=== PATIENT | female | born 1995 | race Caucasian/White ===

== ENCOUNTER 2018-10-08 14:57 | Emergency (ER) | payer MEDICAID, SELFPAY ==
[2018-10-08 14:58] VITALS: BP 118/78; PULSE 124; RESP 22; TEMP 36.6; O2SAT 100; BMI 36.5
--- NOTE | 2018-10-08 15:12 | ED.DCSUM_ITS ---
- ER Visit Summary Date of Service: 10/08/18 Chief Complaint: Abscess History of Present Illness: The patient is a 22 F with history of IV drug abuse presents to the emergency department with abscess on her left breast. Patient states the last time she injected in this area was in July. She states th at she had a continued red area since that time. She states is not gotten worse. She states it also has not improved. She does have history of prior abscess. She states that she was hesitant to seek care because of her history of drug abuse. She denies any fevers or chills. She has no history of HIV. She has not tried any other therapies. Physical Examination: Vital signs reviewed General: Well-nourished, well-developed Head: Normocephalic, atraumatic Eyes: Pupils equal and reactive, extraocular muscles intact Neck, supple, no lymphadenopathy Heart: Regular rate and rhythm Respiratory: No distress, clear bilaterally Abdomen: Soft, nontender, nondistended, no peritoneal signs Back: Nontender Extremities: Nontender, no edema, no cords Skin: Normal color, patient has a 6 cm ovoid area of erythema at the 11 o'clock position on the left breast. There is no central fluctuance. There is no streaking or cellulitis. Neuro: Alert and oriented, no focal or lateralizing deficits Test Results: [] Emergency Department Course and Treatment: The patient has erythema of the left breast. I do feel that this might be even a small area of necrotic tissue from her injection. It has not worsened within the past 2 months. I am hesitant to try and incise this area as there is no fluctuance. I am going to start the patient on oral antibiotics. I did counseling services manager her that she needs to follow-up with general surgery for reevaluation. I also counseled her that if this is not improving within the next 24-48 hours she should return immediately to the emergency department. She has had no systemic symptoms. I have no suspicion for bacteremia or other dangerous process. The patient will be discharged home. Treatment Plan: [] Disposition: To Impression: Left breast cellulitis This note was generated with [employer] dictation software. It may contain incorrect words, spelling, and punctuation that were not noted in review of the chart prior to signing ED Disposition - Plan for ED Patient: Chief Complaint: Abscess Instructions: ED Infec Skin Cellulitis Prescriptions: Smz/Tmp Ds [Bactrim Ds] 1 tab PO BID #20 tab Referrals: Lydia Fu MD [STAFF PHYSICIAN] - Víctor Sal MD [STAFF PHYSICIAN] -
[2018-10-08] MEDS: Smz/Tmp Ds Tablet 1 TABLET PO (15:29)
[2018-10-08 15:36] VITALS: PULSE 105; RESP 20; O2SAT 99
== END 2018-10-08 15:39 | disposition home or self-care (01) ==
LOC: ED 15:35
PROVIDERS: Emergency Provider Emergency Medicine
DX: N61.0 Mastitis without abscess (principal); F19.11 Other psychoactive substance abuse, in remission
CPT/HCPCS: 99283

== ENCOUNTER 2018-12-15 05:06 | Observation (INO) | payer MEDICAID, SELFPAY ==
[2018-12-15 05:07] VITALS: BP 134/87; PULSE 110; RESP 18; TEMP 36.8; O2SAT 98; BMI 32.8
--- NOTE | 2018-12-15 05:34 | ED.VISSUMM ---
- ER Visit Summary Date of Service: 12/15/18 Chief Complaint: Right hand pain History of Present Illness: The patient is a 23 F presenting due to right hand pain. The patient has a history of IV meth usage. She states that 2 days ago, she injected into the dorsum of her right hand. She reports that she had an instant feeling of pain. She states that since then she has had some spreading redness in the area and continued pain. She states that this has been refractory to ibuprofen, warm soaks, and ice. She states that she has not had any constitutional symptoms such as fever or chills. She denies any chest pain or shortness of breath. ROS is otherwise negative. Physical Examination: Vitals are notable for a heart rate of 110. Well nourished female no acute distress. Head normocephalic. Moist mucous membranes. Heart tachycardic and regular with no murmurs. Extremities show multiple track deutsch. The dorsum of the right hand has swelling, erythema extending to the wrist, and tenderness to palpation. There is no short arc pain of the wrist. Normal ROM of the wrist and hand. SILT. Normal pulses, Normal cap refill. No fluctuance or subcutaneous emphysema noted. Test Results: Right hand x-ray shows cellulitis with no bony involvement and no foreign bodies, CBC shows leukocytosis of 12, chemistry not significantly remarkable and a normal lactic acid. Emergency Department Course and Treatment: Patient presented secondary to IV drug abuse and infection of the dorsum of the right hand. Patient was tachycardic, so sepsis workup was obtained. She was found to have leukocytosis, she meets sepsis criteria. She was given clindamycin IV. X-ray shows no evidence of foreign body or bony involvement. This is the patient's dominant hand, she has sepsis, and I have significant suspicion that she would have difficulty with adhering to an antibiotic regimen. I believe she requires admission for IV antibiotics. I will discussed this with hospitalist. Disposition: Admission Impression: 1. Right hand cellulitis 2. Sepsis 3. History of IV methamphetamine use This note was generated with [employer] software. It may contain incorrect words, spelling, and punctuation that were not noted in review of the chart prior to signing ED Disposition - Plan for ED Patient: Referrals: Care Physician,No Primary [Primary Care Provider] -
[2018-12-15 05:45] VITALS: BP 109/72; PULSE 92; RESP 28; TEMP 36.8; O2SAT 95
[2018-12-15 05:45] LABS: Absolute Neutrophil Count 7.8 X10^3/uL (2.0-7.7); Basophil# 0.07 X10^3/uL; Basophil% 0.6 % (0-1); Eosinophil# 0.57 X10^3/uL; Eosinophils% 4.5 % (0-5); Hematocrit 39.4 % (37-47); Hemoglobin 12.9 g/dl (12.0-15.0); Lymphocyte % 27.5 % (19-41); Mean Corp Hgb Conc 32.7 g/gl (32-36); Mean Corpuscular Hgb 27.9 pg (27.0-32.0); Mean Corpuscular Volume 85.3 fL (81-99); Mean Platelet Vol. 10.4 fl (6.2-12.0); Monocyte# 0.75 X10^3/uL; Monocyte% 5.9 % (0-10); Neutrophil # 7.78 X10^3/uL (2.7-7.7); Neutrophil % 61.1 % (47-70); Platelet Count 265 K/mm3 (150-450); RBC Distribution Width CV 12.7 % (11.6-14.6); RBC Distribution Width SD 38.9 fl (35.1-43.9); Red Blood Count 4.62 M/mm3 (4.2-5.4); White Blood Count 12.7 K/mm3 (4.4-11.0)
--- NOTE | 2018-12-15 05:45 | RAD_ITS ---
STUDY: X-RAY - RIGHT HAND REASON FOR EXAM: Female, 23 years old. PT STATES SHE ATTEMPTED TO SHOOT UP METH IN RIGHT HAND AND HAD INSTANT PAIN WITH SWELLING AND REDNESS TECHNIQUE: view(s) of the hand. COMPARISON: None. FINDINGS: Normal radiocarpal articulation. Normal distal radioulnar joint. Normal visualized carpal bones. Normal carpal articulations Normal carpometacarpal articulation of the thumb. Normal second through fifth carpometacarpal joints. Normal metacarpi. Normal metacarpophalangeal joint of the thumb. Normal interphalangeal joint of the thumb. Normal proximal and distal phalanges of the thumb. Normal metacarpophalangeal joints of the second through fifth fingers. Normal proximal and distal interphalangeal joints of the second through fifth fingers. Normal phalanges of the second through fifth fingers. There is soft tissue swelling at the dorsal aspect of right hand suggesting edema. RAD/Hand Min 3 Views IMPRESSION: Cellulitis of the dorsal aspect of the right hand. Electronically Signed: Gisella Rodriguez MD at 5:57 EST Tel , Service support ,
[2018-12-15 05:55] LABS: Prothrombin Time (Protime)PT. 13.5 SECONDS (11.7-14.9)
[2018-12-15 05:56] LABS: Partial Thromboplast Time 32.8 Seconds (24.1-36.2)
[2018-12-15 05:59] LABS: POSITIVE COUNT NO; POSITIVE DIFFERENTIAL NO; POSITIVE MORPHOLOGY NO
[2018-12-15 06:05] LABS: Lactic Acid 0.9 mmol/L (0.4-2.0)
[2018-12-15 06:08] LABS: ALB/GLOB Ratio 0.7 RATIO (0.9-2.4); AST(SGOT) 12 U/L (15-37); Alanine Aminotransfer ALT/SGPT 15 U/L (13-56); Albumin, Serum 3.3 g/dL (3.2-5.0); Alkaline Phosphatase 82 U/L (45-117); Anion Gap 9 (5-15); BUN 12 mg/dL (7-18); BUN/Creat Ratio 18.9 RATIO (10-20); Calcium,Total 8.7 mg/dL (8.5-10.1); Chloride 106 mmol/L (98-107); Creatinine, Serum 0.64 mg/dL (0.55-1.02); EST Glomerular Filtration Rate 125 mL/min (>60); Est Glom Filt Rate - Afr Amer 152 mL/min (>60); Estimated Creatinine Clearance 120.07 ml/min; Globulin 4.8 g/dL (2.2-4.2); Glucose 100 mg/dL (74-106); Protein, Total 8.1 g/dL (6.4-8.2); Sodium Level 140 mmol/L (136-145)
[2018-12-15] MEDS: Ketorolac 15 MG/ML Vial IV (06:25)
--- NOTE | 2018-12-15 06:28 | PCM.HP.STD ---
Problem List (1) Sepsis Status: Acute (2) Cellulitis of right hand Status: Acute (3) IV drug abuse Status: Chronic History of Present Illness Date of Admission: 12/15/18 Chief Complaint: Right hand pain, swelling, redness. The patient is a 23 year old F with past medical history as mentioned above presented to the emergency room because of right hand pain, swelling and redness. Her symptoms started 2 days ago with the right hand pain, started almost immediately after she injected IV methamphetamine, pain described as throbbing pain, 6 out of 10 in severity, not radiating, associated with right hand swelling and redness and without aggravating or relieving factors. She denies fever chills. She admitted using IV drugs for a long time and she uses multiple drugs. Upon arrival to ER, patient was afebrile, tachycardic, blood pressure was stable and pulse ox was 98% on room air. Routine blood work was remarkable for leukocytosis, otherwise normal. Lactic acid was normal. X-ray of the left hand revealed soft tissue swelling of the dorsal aspect of the consistent with cellulitis. She is being admitted for acute right hand cellulitis with sepsis. 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 - *Family History Maternal History Items: Diabetes, Hypertension Paternal History Items: No pertinent history Review of Systems Constitutional: Denies: Anorexia, Chills, Fever, Weakness Eyes: Denies: Blurred vision, Double vision, Drainage, Redness HEENT: Denies: Difficulty Hearing, Ear Pain, Eye Pain, Nasal Congestion, Sore Throat Cardiovascular: Denies: Chest Pain, Chest Pressure, Chest Tightness, Heaviness, Light Headedness, Palpitations, Syncope Respiratory: Denies: Cough, Pleuritic Pain, Shortness of Breath, Sputum production, Wheezing Gastrointestinal: Denies: Abdominal Pain, Constipation, Diarrhea, Nausea, Vomiting Genitourinary: Denies: Dysuria, Frequency, Hematuria Musculoskeletal: Reports: Hand Pain. Denies: Arm Pain, Back Pain, Foot Pain, Leg Pain Skin: Denies: Dryness, Rash Neurological: Denies: Balance problems, Double vision, Change in Speech, Confusion, Headaches, Incoordination, Numbness, Tingling Psychiatric: Denies: Anxiety, Depression Endocrine: Denies: Change in Body Habitus, Polydipsia VTE Information - Inpt Only VTE Present on Admission: No VTE Mechan Device Prophylaxis: None VTE Pharm Prophylaxis ordered?: No Patient Problems: Active and Suspected Problems Sepsis (Acute) Cellulitis of right hand (Acute) - Physical Exam General: Alert, Oriented x3, Cooperative, No apparent distress HEENT: Atraumatic, PERRLA, EOMI, Normocephalic Oral: Moist Mucosa, No Gingival or Mucosal Lesions/ Ulcerations Neck: Supple, No JVD, Negative Carotid Bruits, Trachea Midline, Thyroid Normal Size and Texture Lungs: Clear to auscultation, Normal air movement, No rhonchi, No wheeze, No rales Cardiovascular: Regular rate, Regular Rhythm, Normal S1, Normal S2, No murmurs Abdomen: Bowel Sounds Present, Soft, Non Tender, Non-Distended, No Hepato-splenomegaly, Obese Extremities: No clubbing, No cyanosis, No edema, - - Right hand: Swelling on the dorsal aspect with erythema, tender to palpation. Skin: No rashes, No breakdown Lymphatic: No Cervical, Supraclavicular, or Inguinal Adenopathy Neurological: Deep Tendon Reflexes 2+/4 and Symmetrical, Motor Exam 5/5 strength throughout Psych/Mental Status: Normal Affect, Appropriate, Alert and oriented to time, place, person, mood and affect Vital Signs Temp Pulse Resp BP Pulse Ox 98.3 F 92 28 H 109/72 95 12/15/18 05:45 12/15/18 05:45 12/15/18 05:45 12/15/18 05:45 12/15/18 05:45 Oxygen Delivery Method Room Air Weight: 191 lb 2.252 oz Body Mass Index (BMI) 32.8 Laboratory Tests Past 24 Hrs 12/15/18 12/15/18 12/15/18 05:30 05:30 05:30 WBC 12.7 H RBC 4.62 Hgb 12.9 Hct 39.4 MCV 85.3 MCH 27.9 MCHC 32.7 RDW 12.7 RDW Differential 38.9 Plt Count 265 MPV 10.4 Immature Gran % (Auto) 0.400 Neut % (Auto) 61.1 Lymph % (Auto) 27.5 [place] % (Auto) 5.9 Eos % (Auto) 4.5 Baso % (Auto) 0.6 Absolute Neuts (auto) 7.8 H Absolute Lymphs (auto) 3.50 Total Counted Not Reportable PT 13.5 INR 1.0 APTT 32.8 Sodium 140 Potassium 4.0 Chloride 106 Carbon Dioxide 25.0 Anion Gap 9 BUN 12 Creatinine 0.64 Estim Creat Clear Calc 120.07 Est GFR (MDRD) Af Amer 152 Est GFR (MDRD) Non-Af 125 BUN/Creatinine Ratio 18.9 Glucose 100 Lactic Acid Calcium 8.7 Total Bilirubin 0.30 AST 12 L ALT 15 Alkaline Phosphatase 82 Total Protein 8.1 Albumin 3.3 Globulin 4.8 H Albumin/Globulin Ratio 0.7 L 12/15/18 05:30 WBC RBC Hgb Hct MCV MCH MCHC RDW RDW Differential Plt Count MPV Immature Gran % (Auto) Neut % (Auto) Lymph % (Auto) [place] % (Auto) Eos % (Auto) Baso % (Auto) Absolute Neuts (auto) Absolute Lymphs (auto) Total Counted PT INR APTT Sodium Potassium Chloride Carbon Dioxide Anion Gap BUN Creatinine Estim Creat Clear Calc Est GFR (MDRD) Af Amer Est GFR (MDRD) Non-Af BUN/Creatinine Ratio Glucose Lactic Acid 0.9 Calcium Total Bilirubin AST ALT Alkaline Phosphatase Total Protein Albumin Globulin Albumin/Globulin Ratio Clinical Impression(s) from Imaging Studies Hand X-Ray 12/15/18 05:45 IMPRESSION: Cellulitis of the dorsal aspect of the right hand. Electronically Signed: Gisella Rodriguez MD at 5:57 EST Tel , Service support , Assessment/Plan All Active Problems Sepsis (Acute) Cellulitis of right hand (Acute) This is a 23 years old female patient presented to the emergency room because of right hand pain, swelling and redness after she injected herself with IV amphetamine, found to have findings consistent with acute right hand cellulitis with sepsis and she is being admitted for treatment. #1 acute right hand cellulitis/sepsis: Patient is tachycardic, leukocytosis. Lactic acid was normal. Other vital signs are stable. X-ray of the right hand reviewed as above. Plan: Admit to [facility] floor, blood culture, IV fluids, start IV clindamycin, IV Toradol, Tylenol as needed, Zofran as needed, repeat CBC tomorrow morning. #2 IV drug abuse: Patient admitted using IV drugs including methamphetamines and other drugs. #3 DVT prophylaxis: Low-risk patient, no prophylaxis indicated, ambulate. This note was generated with [employer] dictation software. It may contain incorrect words, spelling, and punctuation that were not noted in checking the note before signing. Code Visit Inpatient E&M: 91857 Init Hosp L2
--- NOTE | 2018-12-15 06:32 | HP.PCM_ITS ---
Problem List (1) Sepsis Status: Acute (2) Cellulitis of right hand Status: Acute (3) IV drug abuse Status: Chronic History of Present Illness Date of Admission: 12/15/18 Chief Complaint: Right hand pain, swelling, redness. The patient is a 23 year old F with past medical history as mentioned above presented to the emergency room because of right hand pain, swelling and redness. Her symptoms started 2 days ago with the right hand pain, started almost immediately after she injected IV methamphetamine, pain described as throbbing pain, 6 out of 10 in severity, not radiating, associated with right hand swelling and redness and without aggravating or relieving factors. She denies fever chills. She admitted using IV drugs for a long time and she uses multiple drugs. Upon arrival to ER, patient was afebrile, tachycardic, blood pressure was stable and pulse ox was 98% on room air. Routine blood work was remarkable for leukocytosis, otherwise normal. Lactic acid was normal. X-ray of the left hand revealed soft tissue swelling of the dorsal aspect of the consistent with cellulitis. She is being admitted for acute right hand cellulitis with sepsis. Past Medical History Past Medical History (Chronic Problems): Chronic Problems IV drug abuse (Chronic) Allergies hydrocodone Allergy (Verified 12/15/18 05:11) Rash etodolac [From Lodine] Adverse Reaction (Verified 12/15/18 05:11) Rash Home Medications: Ambulatory Orders Medication Instructions Recorded NK 12/15/18 Surgical History: no surgical history Psychiatric History: No pertinent psych hx BEATER OUT History: No pertinent BEATER OUT history Lives: With Family Smoking Status: Current every day smoker Tobacco Use: Cigarettes Alcohol: None Drugs: - - Methamphetamines. - *Family History Maternal History Items: Diabetes, Hypertension Paternal History Items: No pertinent history Review of Systems Constitutional: Denies: Anorexia, Chills, Fever, Weakness Eyes: Denies: Blurred vision, Double vision, Drainage, Redness HEENT: Denies: Difficulty Hearing, Ear Pain, Eye Pain, Nasal Congestion, Sore Throat Cardiovascular: Denies: Chest Pain, Chest Pressure, Chest Tightness, Heaviness, Light Headedness, Palpitations, Syncope Respiratory: Denies: Cough, Pleuritic Pain, Shortness of Breath, Sputum production, Wheezing Gastrointestinal: Denies: Abdominal Pain, Constipation, Diarrhea, Nausea, Vomiting Genitourinary: Denies: Dysuria, Frequency, Hematuria Musculoskeletal: Reports: Hand Pain. Denies: Arm Pain, Back Pain, Foot Pain, Leg Pain Skin: Denies: Dryness, Rash Neurological: Denies: Balance problems, Double vision, Change in Speech, Confusion, Headaches, Incoordination, Numbness, Tingling Psychiatric: Denies: Anxiety, Depression Endocrine: Denies: Change in Body Habitus, Polydipsia VTE Information - Inpt Only VTE Present on Admission: No VTE Mechan Device Prophylaxis: None VTE Pharm Prophylaxis ordered?: No Patient Problems: Active and Suspected Problems Sepsis (Acute) Cellulitis of right hand (Acute) - Physical Exam General: Alert, Oriented x3, Cooperative, No apparent distress HEENT: Atraumatic, PERRLA, EOMI, Normocephalic Oral: Moist Mucosa, No Gingival or Mucosal Lesions/ Ulcerations Neck: Supple, No JVD, Negative Carotid Bruits, Trachea Midline, Thyroid Normal Size and Texture Lungs: Clear to auscultation, Normal air movement, No rhonchi, No wheeze, No rales Cardiovascular: Regular rate, Regular Rhythm, Normal S1, Normal S2, No murmurs Abdomen: Bowel Sounds Present, Soft, Non Tender, Non-Distended, No Hepato- splenomegaly, Obese Extremities: No clubbing, No cyanosis, No edema, - - Right hand: Swelling on the dorsal aspect with erythema, tender to palpation. Skin: No rashes, No breakdown Lymphatic: No Cervical, Supraclavicular, or Inguinal Adenopathy Neurological: Deep Tendon Reflexes 2+/4 and Symmetrical, Motor Exam 5/5 strength throughout Psych/Mental Status: Normal Affect, Appropriate, Alert and oriented to time, place, person, mood and affect Vital Signs Temp Pulse Resp BP Pulse Ox 98.3 F 92 28 H 109/72 95 12/15/18 05:45 12/15/18 05:45 12/15/18 05:45 12/15/18 05:45 12/15/18 05:45 Oxygen Delivery Method Room Air Weight: 191 lb 2.252 oz Body Mass Index (BMI) 32.8 Laboratory Tests Past 24 Hrs 12/15/18 12/15/18 12/15/18 05:30 05:30 05:30 WBC 12.7 H RBC 4.62 Hgb 12.9 Hct 39.4 MCV 85.3 MCH 27.9 MCHC 32.7 RDW 12.7 RDW Differential 38.9 Plt Count 265 MPV 10.4 Immature Gran % (Auto) 0.400 Neut % (Auto) 61.1 Lymph % (Auto) 27.5 [place] % (Auto) 5.9 Eos % (Auto) 4.5 Baso % (Auto) 0.6 Absolute Neuts (auto) 7.8 H Absolute Lymphs (auto) 3.50 Total Counted Not Reportable PT 13.5 INR 1.0 APTT 32.8 Sodium 140 Potassium 4.0 Chloride 106 Carbon Dioxide 25.0 Anion Gap 9 BUN 12 Creatinine 0.64 Estim Creat Clear Calc 120.07 Est GFR (MDRD) Af Amer 152 Est GFR (MDRD) Non-Af 125 BUN/Creatinine Ratio 18.9 Glucose 100 Lactic Acid Calcium 8.7 Total Bilirubin 0.30 AST 12 L ALT 15 Alkaline Phosphatase 82 Total Protein 8.1 Albumin 3.3 Globulin 4.8 H Albumin/Globulin Ratio 0.7 L 12/15/18 05:30 WBC RBC Hgb Hct MCV MCH MCHC RDW RDW Differential Plt Count MPV Immature Gran % (Auto) Neut % (Auto) Lymph % (Auto) [place] % (Auto) Eos % (Auto) Baso % (Auto) Absolute Neuts (auto) Absolute Lymphs (auto) Total Counted PT INR APTT Sodium Potassium Chloride Carbon Dioxide Anion Gap BUN Creatinine Estim Creat Clear Calc Est GFR (MDRD) Af Amer Est GFR (MDRD) Non-Af BUN/Creatinine Ratio Glucose Lactic Acid 0.9 Calcium Total Bilirubin AST ALT Alkaline Phosphatase Total Protein Albumin Globulin Albumin/Globulin Ratio Clinical Impression(s) from Imaging Studies Hand X-Ray 12/15/18 05:45 IMPRESSION: Cellulitis of the dorsal aspect of the right hand. Electronically Signed: Gisella Rodriguez MD at 5:57 EST Tel , Service support , Assessment/Plan All Active Problems Sepsis (Acute) Cellulitis of right hand (Acute) This is a 23 years old female patient presented to the emergency room because of right hand pain, swelling and redness after she injected herself with IV amphetamine, found to have findings consistent with acute right hand cellulitis with sepsis and she is being admitted for treatment. #1 acute right hand cellulitis/sepsis: Patient is tachycardic, leukocytosis. Lactic acid was normal. Other vital signs are stable. X-ray of the right hand reviewed as above. Plan: Admit to [facility] floor, blood culture, IV fluids, start IV clindamycin, IV Toradol, Tylenol as needed, Zofran as needed, repeat CBC tomorrow morning. #2 IV drug abuse: Patient admitted using IV drugs including methamphetamines and other drugs. #3 DVT prophylaxis: Low-risk patient, no prophylaxis indicated, ambulate. This note was generated with [employer] dictation software. It may contain incorrect words, spelling, and punctuation that were not noted in checking the note before signing. Code Visit Inpatient E&M: 86286 Init Hosp L2
[2018-12-15 07:16] VITALS: BP 104/74; PULSE 81; RESP 16; TEMP 36.7; O2SAT 99; BMI 36.6; BMI 36.7
[2018-12-15] MEDS: 0.9% Normal Saline 1,000 ML 100 ML IV (08:24)
--- NOTE | 2018-12-15 11:30 | PCM.DC ---
- Discharge Diagnoses Current Active Problems: Current Active and Chronic Problems (1) R Hand Cellulitis, Mild w/ history of IVDA (2) Sepsis, RULED OUT, mild tachycardia felt secondary to recent Methamphetamine use (only WBC mild elevation, non-ill appearing) (3) Polysubstance abuse (4) Tobacco use (5) History of Hepatitis C You will use the following diet at home:: Regular Your food should be the consistency of: Regular Your liquids should be the consistency of: Regular/Thin Discharge Activity: - - Keep right hand clean and dry given recent cellulitis. May place dry dressing if necessary. May resume sexual activity in: - - Please see discharge instructions. Keep extremity elevated above heart level: Right Arm Call your doctor if you observe: Fever of 101 or Higher, Inability to urinate, Inability to have a bowel movement, Shortness of breath, Dizziness, Fainting spells, Chest pain, Uncontrolled pain, - - Worsened R hand pain, worsened swelling, recurrent redness, fever or chills. Cleanse incision/area with: Soap & Water Instructions: Discharge Instructions for Cellulitis, Understanding Methamphetamine Abuse and Addiction, ED Drug Abuse General, Understanding Hepatitis C (HCV), Treating Hepatitis C (HCV), Discharge Instructions for Hepatitis C, Hepatitis C: Preventing the Spread, Hepatitis C: Protecting Your Liver Pending Tests on Discharge: Hepatitis panel as well as HIV testing pending upon discharge. Please review these labs at follow-up with your primary care physician. Allergies/Adverse Reactions: Allergies hydrocodone Allergy (Verified 12/15/18 05:11) Rash etodolac [From Lodine] Adverse Reaction (Verified 12/15/18 05:11) Rash Medications to take at Discharge Cephalexin [Keflex] 500 mg PO Q6 6 Days #24 capsule 12/15/18 Sulfamethoxazole/Trimethoprim [Bactrim Ds Tablet] 1 each PO BID 6 Days #12 tablet 12/15/18 The following prescriptions were given: Cephalexin [Keflex] 500 mg PO Q6 6 Days #24 capsule Sulfamethoxazole/Trimethoprim [Bactrim Ds Tablet] 1 each PO BID 6 Days #12 tablet Primary Care Physician: Care Physician,No Primary [Primary Care Provider] - Please follow up with your Primary Care Physician in: Please follow-up and establish with PCP within 3-5 days, list given. Test Results: Test results from this visit will be discussed in further detail at your follow-up appointment, if applicable. Proposed Discharge Date: 12/15/18
--- NOTE | 2018-12-15 11:35 | DCINST_ITS ---
- Discharge Diagnoses Current Active Problems: Current Active and Chronic Problems (1) R Hand Cellulitis, Mild w/ history of IVDA (2) Sepsis, RULED OUT, mild tachycardia felt secondary to recent Methamphetamine use (only WBC mild elevation, non-ill appearing) (3) Polysubstance abuse (4) Tobacco use (5) History of Hepatitis C You will use the following diet at home:: Regular Your food should be the consistency of: Regular Your liquids should be the consistency of: Regular/Thin Discharge Activity: - - Keep right hand clean and dry given recent cellulitis. May place dry dressing if necessary. May resume sexual activity in: - - Please see discharge instructions. Keep extremity elevated above heart level: Right Arm Call your doctor if you observe: Fever of 101 or Higher, Inability to urinate, Inability to have a bowel movement, Shortness of breath, Dizziness, Fainting spells, Chest pain, Uncontrolled pain, - - Worsened R hand pain, worsened swelling, recurrent redness, fever or chills. Cleanse incision/area with: Soap & Water Instructions: Discharge Instructions for Cellulitis, Understanding Methamphetamine Abuse and Addiction, ED Drug Abuse General, Understanding Hepatitis C (HCV), Treating Hepatitis C (HCV), Discharge Instructions for Hepatitis C, Hepatitis C: Preventing the Spread, Hepatitis C: Protecting Your Liver Pending Tests on Discharge: Hepatitis panel as well as HIV testing pending upon discharge. Please review these labs at follow-up with your primary care physi ever. Allergies/Adverse Reactions: Allergies hydrocodone Allergy (Verified 12/15/18 05:11) Rash etodolac [From Lodine] Adverse Reaction (Verified 12/15/18 05:11) Rash Medications to take at Discharge Cephalexin [Keflex] 500 mg PO Q6 6 Days #24 capsule 12/15/18 Sulfamethoxazole/Trimethoprim [Bactrim Ds Tablet] 1 each PO BID 6 Days #12 tablet 12/15/18 The following prescriptions were given: Cephalexin [Keflex] 500 mg PO Q6 6 Days #24 capsule Sulfamethoxazole/Trimethoprim [Bactrim Ds Tablet] 1 each PO BID 6 Days #12 tablet Primary Care Physician: Care Physician,No Primary [Primary Care Provider] - Please follow up with your Primary Care Physician in: Please follow-up and establish with PCP within 3-5 days, list given. Test Results: Test results from this visit will be discussed in further detail at your follow- up appointment, if applicable. Proposed Discharge Date: 12/15/18
--- NOTE | 2018-12-15 11:45 | NEWVISION ---
I saw this patient as requested by social work therapist, Suni Childress. Patient stated she has been working with [facility] and is looking to get into their inpatient women's residential program, [facility]. I had patient sign hospital release with SW assistance. After BRITT was signed, I spoke with Vicki Eddy at [facility] who confirmed that the patient had been working with them and they needed her physical. Patient spoke with Vicki on the phone while I was in the room. H&P to be faxed to fulfill physical requirements. I asked patient if there was anything else or any other resources that I may provide and patient said no, she is happy to get into the [facility]. Patient to keep in contact with [facility] for information regarding date for placement.
--- NOTE | 2018-12-15 12:08 | DS.PCM_ITS ---
Discharge Date and Diagnosis - Problem List Patient Problems: Active and Suspected Problems Sepsis (Acute) Cellulitis of right hand (Acute) Date of Admission: 12/15/18 Date of Discharge: 12/15/18 - Primary Discharge Diagnosis Active and Suspected Problems (1) R Hand Cellulitis, Mild w/ history of IVDA (2) Sepsis, RULED OUT, mild tachycardia felt secondary to recent Methamphetamine use (only WBC mild elevation, non-ill appearing) (3) Polysubstance abuse (4) Tobacco use (5) History of Hepatitis C - Secondary Discharge Diagnosis Chronic Problems (1) Polysubstance abuse (2) Tobacco use (3) History of Hepatitis C (4) Obesity Hospital Course and Treatment Imaging Results: 12/15/18 05:45 Hand Min 3 Views [RAD] Stat Operations: None Procedures: None Summary of Care Provided: The patient is a 23 y/o F w/ PMHx: Obesity, Tobacco use, History of IVDA, Histo ry of Hepatitis C who presents to the [facility] ED on 12/15/18 with history of recent injection into her right hand noted to have injected IV methamphetamines with onset following progressively worsening throbbing 6 out of 10 pain with no radiation with right hand swelling and mild redness with no associated fevers or chills, not resolving eventually prompting ED evaluation. In the ED patient was afebrile and had mild tachycardia however she admitted to recently using methamphetamine prior to presentation to the ED with noted mild WBC elevation 12.7 with left shift. Plain film of the hand was obtained and remarkable only for tissue edema consistent with cellulitis of the dorsal aspect of the right hand. In the ED patient was administered clindamycin. Given concern initially the patient may have been septic although she did have recent IV drug abuse prior to presentation to the ED patient was admitted, hydrated, continued on IV clindamycin. Reevaluation later in the a.m. revealed a very stable patient with mildly edematous hand that is been improving with encouraged elevation of her upper extremity with no market evidence of cellulitis and stable vital signs with no continued tachycardia although patient did have notable fidgeting and likely going through withdrawal at this point. Given patient improvement discussed with patient and plan discharge to home following [facility] eval uation for assistance for patient transition to outpatient therapy for her drug abuse as well as requested PCP set up upon discharge. Patient discharged to home on oral Keflex and Bactrim regimen which was sent to the hospital pharmacy and requested to be delivered to patient's room to assure maximum compliance potential. During admission patient was amenable to HIV and hepatitis panel to assess for coinfection and these were noted to be pending at this time with recommendation to follow-up with her primary care physician which is to be arranged prior to discharge to review these once these have resulted. DAY OF DISCHARGE PROGRESS NOTE: Subjective: Patient without acute events since admission per self and nursing report. Patient improved, taken shower, eating well, vital signs stable, notes right hand swelling has been improving with elevation and cellulitis is difficult to discern on evaluation. Patient amenable to discharge and willing to discuss possible programs with [facility] prior to discharge. Patient denies fever, chills, nausea, emesis, abdominal pain, chest pain or dyspnea. Patient will be discharged with follow-up with primary care physician which is been requested to be set up prior to his discharge within 3-5 days. Objective: T 98.1, heart rate 81, BP 104/74, respiratory rate 16, 99% on room air. Physical Examination: General: awake, alert, oriented x 3 and cooperative, seated upright in the bed, NAD, recent shower, refreshed. Skin: normal color, turgor, no icterus, cyanosis occasional abrasion, scab, some mild edema to the right hand with no obvious cellulitis upon reevaluation and not markedly tender to palpation. HEENT: AT/NC, EOMI, PERRLA, improved MMM. Lungs: CTA bilaterally, moderate effort, mild decrease BL bases, no rales, ronchi or wheezing; Heart: Regular rate and rhythm; no gallop, rub audible. Abdomen: soft, obese, NTTP, ND, normal BS. Extremities: no cyanosis, clubbing, see skin for R hand. Neurological: patient awake, alert, oriented x 3; cognitive function appears intact upon questioning,; pupils equally reactive to light and accomodation; cranial nerves II-XII grossly normal, moving all 4 extremities, strength appears appropriate, not debilitated, preserved. Psychiatric: affect appears normal, no acute evidence of depressive or anxiety feelings. Assessment and Plan: Please see hospital summary above. Patient Problems: Active and Suspected Problems Sepsis (Acute) Cellulitis of right hand (Acute) - Physical Exam Vital Signs Temp Pulse Resp BP Pulse Ox 98.1 F 81 16 104/74 99 12/15/18 07:16 12/15/18 07:16 12/15/18 07:16 12/15/18 07:16 12/15/18 07:16 Oxygen Delivery Method Room Air Weight: 181 lb 10.574 oz Body Mass Index (BMI) 36.6 Laboratory Tests Past 24 Hrs 12/15/18 12/15/18 12/15/18 05:30 05:30 05:30 WBC 12.7 H RBC 4.62 Hgb 12.9 Hct 39.4 MCV 85.3 MCH 27.9 MCHC 32.7 RDW 12.7 RDW Differential 38.9 Plt Count 265 MPV 10.4 Immature Gran % (Auto) 0.400 Neut % (Auto) 61.1 Lymph % (Auto) 27.5 [place] % (Auto) 5.9 Eos % (Auto) 4.5 Baso % (Auto) 0.6 Absolute Neuts (auto) 7.8 H Absolute Lymphs (auto) 3.50 Total Counted Not Reportable PT 13.5 INR 1.0 APTT 32.8 Sodium 140 Potassium 4.0 Chloride 106 Carbon Dioxide 25.0 Anion Gap 9 BUN 12 Creatinine 0.64 Estim Creat Clear Calc 120.07 Est GFR (MDRD) Af Amer 152 Est GFR (MDRD) Non-Af 125 BUN/Creatinine Ratio 18.9 Glucose 100 Lactic Acid Calcium 8.7 Total Bilirubin 0.30 AST 12 L ALT 15 Alkaline Phosphatase 82 Total Protein 8.1 Albumin 3.3 Globulin 4.8 H Albumin/Globulin Ratio 0.7 L Hepatitis A IgM Ab Hepatitis A Ab Total Hep Bs Antigen Hep B Core Total Ab Hep B Core IgM Ab HIV 1&2 Antibody 12/15/18 12/15/18 12/15/18 05:30 11:10 11:10 WBC RBC Hgb Hct MCV MCH MCHC RDW RDW Differential Plt Count MPV Immature Gran % (Auto) Neut % (Auto) Lymph % (Auto) [place] % (Auto) Eos % (Auto) Baso % (Auto) Absolute Neuts (auto) Absolute Lymphs (auto) Total Counted PT INR APTT Sodium Potassium Chloride Carbon Dioxide Anion Gap BUN Creatinine Estim Creat Clear Calc Est GFR (MDRD) Af Amer Est GFR (MDRD) Non-Af BUN/Creatinine Ratio Glucose Lactic Acid 0.9 Calcium Total Bilirubin AST ALT Alkaline Phosphatase Total Protein Albumin Globulin Albumin/Globulin Ratio Hepatitis A IgM Ab Pending Hepatitis A Ab Total Pending Hep Bs Antigen Pending Hep B Core Total Ab Pending Hep B Core IgM Ab Pending HIV 1&2 Antibody Pending Discharge Activity: - - Keep right hand clean and dry given recent cellulitis. May place dry dressing if necessary. May resume sexual activity in: - - Please see discharge instructions. Keep extremity elevated above heart level: Right Arm Call your doctor if you observe: Fever of 101 or Higher, Inability to urinate, Inability to have a bowel movement, Shortness of breath, Dizziness, Fainting spells, Chest pain, Uncontrolled pain, - - Worsened R hand pain, worsened swelling, recurrent redness, fever or chills. Cleanse incision/area with: Soap & Water Home Medications: Medications to take at Discharge Cephalexin [Keflex] 500 mg PO Q6 6 Days #24 capsule 12/15/18 Sulfamethoxazole/Trimethoprim [Bactrim Ds Tablet] 1 each PO BID 6 Days #12 tablet 12/15/18 Following Prescrptions Were Given to Patient: Cephalexin [Keflex] 500 mg PO Q6 6 Days #24 capsule Sulfamethoxazole/Trimethoprim [Bactrim Ds Tablet] 1 each PO BID 6 Days #12 tablet Primary Care Physician: Care Physician,No Primary [Primary Care Provider] - Please follow up with your Primary Care Physician in: Please follow-up and establish with PCP within 3-5 days, list given. Patient Instructions: Understanding Hepatitis C (HCV), Treating Hepatitis C (HCV), Understanding Methamphetamine Abuse and Addiction, Discharge Instructions for Cellulitis, Discharge Instructions for Hepatitis C, Hepatitis C: Preventing the Spread, Hepatitis C: Protecting Your Liver, ED Drug Abuse General Disposition: Home Minutes spent on discharge:: 25 Patient Condition:: Fair Medical Necessity - Tobacco Use Smoking Status: Current every day smoker Tobacco Use: Cigarettes Meaningful Use Info Meaningful Use Diagnoses (Choose all that apply): None applicable Code Visit OBSV E&M: 14692 Observation care discharge
[2018-12-15 12:49] LABS: HIV - WCH Non-Reactive (Nonreactive)
[2018-12-15] MEDS: Ketorolac 30 MG/ML Syringe IV (13:09)
[2018-12-15 13:17] VITALS: BP 103/71; PULSE 80; RESP 18; TEMP 36.6; O2SAT 100
[2018-12-16 04:08] LABS: HEPATITIS B SURFACE AG Negative (Negative); Hepatitis A AB, Total Negative (Negative); Hepatitis A IgM Antibody Negative (Negative); Hepatitis B Core AB IgM Negative (Negative); Hepatitis B Core Ab Total Positive (Negative); Hepatitis C Ab >11.0 s/co ratio (0.0-0.9)
[2018-12-16 13:08] LABS: Hep B Surface Antibodies Reactive (.)
== END 2018-12-15 17:36 | disposition home or self-care (01) ==
LOC: ED 06:19 → MS3 06:45
PROVIDERS: Admitting Provider Hospitalist; Emergency Provider Emergency Medicine; Visit Provider Family Medicine
DX: L03.113 Cellulitis of right upper limb (principal); F15.10 Other stimulant abuse, uncomplicated; F19.10 Other psychoactive substance abuse, uncomplicated; F17.210 Nicotine dependence, cigarettes, uncomplicated; Z86.19 Personal history of other infectious and parasitic diseases; E66.9 Obesity, unspecified; Z68.36 Body mass index [BMI] 36.0-36.9, adult; Z71.3 Dietary counseling and surveillance
CPT/HCPCS: 36415; 73130; 80053; 83605; 85025; 85610; 85730; 86703; 86704; 86705; 86706; 86708; 86709; 86803; 87040; 87149; 87340; 96361; 96365; 96366; 96375; 96376; 99218; 99285; J7030; A4216; G0378

== ENCOUNTER → 2019-03-20 09:00 | Outpatient (CLI) | payer MEDICAID, SELFPAY ==
[2019-03-20 08:34] VITALS: BMI 32.8
[2019-03-20 13:00] LABS: ALB/GLOB Ratio 0.8 RATIO (0.9-2.4); AST(SGOT) 23 U/L (15-37); Alanine Aminotransfer ALT/SGPT 38 U/L (13-56); Albumin, Serum 3.8 g/dL (3.2-5.0); Alkaline Phosphatase 92 U/L (45-117); Anion Gap 8 (5-15); BUN 15 mg/dL (7-18); BUN/Creat Ratio 23.2 RATIO (10-20); Calcium,Total 8.8 mg/dL (8.5-10.1); Chloride 107 mmol/L (98-107); Creatinine, Serum 0.65 mg/dL (0.55-1.02); EST Glomerular Filtration Rate 123 mL/min (>60); Est Glom Filt Rate - Afr Amer 148 mL/min (>60); Globulin 4.5 g/dL (2.2-4.2); Glucose 84 mg/dL (74-106); Potassium 4.1 mmol/L (3.5-5.1); Protein, Total 8.3 g/dL (6.4-8.2); Sodium Level 140 mmol/L (136-145)
== END ==
PROVIDERS: PCP Internal Medicine; Visit Provider Nurse Practitioner Family
DX: B19.20 Unspecified viral hepatitis C without hepatic coma (principal)
CPT/HCPCS: 36415; 80053

== ENCOUNTER → 2019-04-20 10:18 | Outpatient (CLI) | payer MEDICAID, SELFPAY ==
[2019-04-20 09:50] VITALS: BMI 32.8
[2019-04-22 03:06] LABS: HCV Quant. RNA PCR 45400 IU/mL (.)
[2019-04-22 13:58] LABS: HCV log 10 4.657 (.)
== END ==
PROVIDERS: PCP Internal Medicine; Visit Provider Internal Medicine
DX: B19.20 Unspecified viral hepatitis C without hepatic coma (principal)
CPT/HCPCS: 36415; 87522

== ENCOUNTER → 2019-05-23 10:13 | Outpatient (CLI) | payer MEDICAID, SELFPAY ==
[2019-04-20 09:50] VITALS: BMI 32.8
--- NOTE | 2019-05-23 10:17 | US_ITS ---
STUDY: ABDOMINAL ULTRASOUND - RIGHT UPPER QUADRANT REASON FOR VISIT: Female, 23 years old. Hepatitis C TECHNIQUE: Ultrasound evaluation of the right upper quadrant was performed with real-time and static castaneda-scale imaging. TECHNICAL QUALITY: Adequate. COMPARISON: None. FINDINGS: Liver: The liver measures 17.7 cm. There is increased echogenicity consistent with fatty infiltration. The bile ducts are within normal limits. There is hepatic color flow. The direction of portal flow is hepatopetal. There is no demonstrated mass lesion. Gallbladder: Normal distended gallbladder. The gallbladder wall measures 3 mm. There is a negative sonographic Celestin's sign. There is no pericholecystic fluid. There are multiple echogenic structures within the gallbladder, consistent with multiple gallstones. Common Bile Duct (C.B.D.): The common bile duct measures 3 mm. Pancreas: Normal size of the head, body and tail of the pancreas. There is normal echogenicity of the pancreas. There is no demonstrated pancreatic mass or cyst. Right Kidney: Normal size of the right kidney. The right kidney measures 12.2 x 5.9 x 6.5 cm. Normal renal cortex. The right cortex measures 2.1 cm. There is no demonstrated renal mass or cyst. There is no right hydronephrosis. US/Abdomen Limited IMPRESSION: Cholelithiasis, no sonographic evidence of acute cholecystitis. Diffuse fatty infiltration of liver, no discrete lesion Electronically Signed: Jerson Davis MD at 11:53 EDT , Service support ,
== END ==
PROVIDERS: Family Provider Internal Medicine; PCP Internal Medicine; Referring Provider Nurse Practitioner Family; Visit Provider Nurse Practitioner Family
DX: B18.2 Chronic viral hepatitis C (principal)
CPT/HCPCS: 76705

== ENCOUNTER → 2019-05-25 08:48 | Outpatient (CLI) | payer MEDICAID, SELFPAY ==
[2019-04-20 09:50] VITALS: BMI 32.8
[2019-05-25 09:30] LABS: Hematocrit 40.5 % (37-47); Hemoglobin 13.4 g/dl (12.0-15.0); Mean Corp Hgb Conc 33.1 g/gl (32-36); Mean Corpuscular Hgb 28.2 pg (27.0-32.0); Mean Corpuscular Volume 85.3 fL (81-99); Mean Platelet Vol. 10.9 fl (6.2-12.0); Platelet Count 192 K/mm3 (150-450); RBC Distribution Width CV 13.5 % (11.6-14.6); RBC Distribution Width SD 41.9 fl (35.1-43.9); Red Blood Count 4.75 M/mm3 (4.2-5.4); White Blood Count 10.2 K/mm3 (4.4-11.0)
[2019-05-25 09:36] LABS: Scan Indicated on CBC? Y/N NO
[2019-05-25 10:03] LABS: International Normalized Ratio 1.1; Prothrombin Time (Protime)PT. 14.1 SECONDS (11.7-14.9)
[2019-05-25 10:06] LABS: ALB/GLOB Ratio 0.9 RATIO (0.9-2.4); AST(SGOT) 50 U/L (15-37); Alanine Aminotransfer ALT/SGPT 154 U/L (13-56); Albumin, Serum 3.5 g/dL (3.2-5.0); Alkaline Phosphatase 110 U/L (45-117); Anion Gap 7 (5-15); BUN 11 mg/dL (7-18); BUN/Creat Ratio 14.3 RATIO (10-20); Calcium,Total 8.6 mg/dL (8.5-10.1); Chloride 110 mmol/L (98-107); Creatinine, Serum 0.77 mg/dL (0.55-1.02); EST Glomerular Filtration Rate 100 mL/min (>60); Est Glom Filt Rate - Afr Amer 121 mL/min (>60); Globulin 4.1 g/dL (2.2-4.2); Glucose 113 mg/dL (74-106); Potassium 3.8 mmol/L (3.5-5.1); Protein, Total 7.6 g/dL (6.4-8.2); Sodium Level 140 mmol/L (136-145); Thyroid Stim Hormone (TSH) 1.66 uIU/mL (0.358-3.74)
[2019-05-25 10:42] LABS: HIV - WCH Non-Reactive (Nonreactive)
[2019-06-01 16:08] LABS: Comment 1a (.); HCV Quant. RNA PCR 2910000 IU/mL (.)
[2019-06-02 13:22] LABS: HCV log 10 6.464 (.); Hepatitis A AB, Total Negative (Negative)
[2019-06-15 17:28] LABS: Hepatitis C Genotype 1a
== END ==
PROVIDERS: Family Provider Internal Medicine; PCP Internal Medicine
DX: B18.2 Chronic viral hepatitis C (principal); R53.83 Other fatigue
CPT/HCPCS: 36415; 80053; 84443; 85027; 85610; 86703; 86708; 87522; 87902

== ENCOUNTER → 2020-12-27 09:33 | Outpatient (CLI) | payer MEDICAID, SELFPAY ==
[2020-12-23 17:13] VITALS: BMI 48.3
[2020-12-27 10:12] LABS: Absolute Lymphocyte Count 3.19 X10^3/uL (0.83-4.51); Absolute Neutrophil Count 7.5 X10^3/uL (2.0-7.7); Basophil# 0.09 X10^3/uL; Basophil% 0.8 % (0-1); Eosinophils% 3.4 % (0-5); Hematocrit 41.6 % (37-47); Hemoglobin 13.4 g/dL (12.0-15.0); Lymphocyte # 3.19 X10^3/ul (4.0); Mean Corp Hgb Conc 32.2 g/dL (32-36); Mean Corpuscular Hgb 27.2 pg (27.0-32.0); Mean Corpuscular Volume 84.6 fL (81-99); Mean Platelet Vol. 11.4 fl (6.2-12.0); Monocyte% 5.1 % (0-10); NRBC Flagged by Analyzer 0 % (0-5); Neutrophil % 63.3 % (47-70); Platelet Count 276 K/mm3 (150-450); RBC Distribution Width CV 13.1 % (11.6-14.6); RBC Distribution Width SD 40.2 fl (35.1-43.9); Red Blood Count 4.92 M/mm3 (4.2-5.4); White Blood Count 11.8 K/mm3 (4.4-11.0)
[2020-12-27 11:04] LABS: ALB/GLOB Ratio 0.8 RATIO (0.9-2.4); AST(SGOT) 14 U/L (15-37); Alanine Aminotransfer ALT/SGPT 23 U/L (13-56); Albumin, Serum 3.5 g/dL (3.2-5.0); Alkaline Phosphatase 116 U/L (45-117); Anion Gap 5 (5-15); BUN 14 mg/dL (7-18); BUN/Creat Ratio 22.4 RATIO (10-20); Calcium,Total 8.5 mg/dL (8.5-10.1); Chloride 107 mmol/L (98-107); Cholesterol 204 mg/dL (200); Creatinine, Serum 0.62 mg/dL (0.55-1.02); EST Glomerular Filtration Rate 126 mL/min (>60); Est Glom Filt Rate - Afr Amer 152 mL/min (>60); Globulin 4.2 g/dL (2.2-4.2); Glucose 92 mg/dL (74-106); High Density Lipoprotein 38 mg/dL; Potassium 3.9 mmol/L (3.5-5.1); Protein, Total 7.7 g/dL (6.4-8.2); Sodium Level 137 mmol/L (136-145); Thyroid Stim Hormone (TSH) 1.32 uIU/mL (0.358-3.74); Triglycerides 175 mg/dL; Very Low Density Lipoprotein 35 mg/dL (5-40)
== END ==
PROVIDERS: PCP Internal Medicine; Referring Provider Nurse Practitioner Family; Visit Provider Nurse Practitioner Family
DX: F32.9 Major depressive disorder, single episode, unspecified (principal); F41.8 Other specified anxiety disorders; B19.20 Unspecified viral hepatitis C without hepatic coma; E66.9 Obesity, unspecified; F19.10 Other psychoactive substance abuse, uncomplicated
CPT/HCPCS: 36415; 80053; 80061; 80307; 84443; 85025; 87521; 87522

== ENCOUNTER → 2021-01-16 15:57 | Outpatient (CLI) | payer MEDICAID, SELFPAY ==
[2020-12-23 17:13] VITALS: BMI 48.3
[2021-01-16 17:13] LABS: Absolute Lymphocyte Count 3.36 X10^3/uL (0.83-4.51); Absolute Neutrophil Count 9.8 X10^3/uL (2.0-7.7); Basophil# 0.08 X10^3/uL; Basophil% 0.6 % (0-1); Eosinophil# 0.43 X10^3/uL; Hematocrit 42.9 % (37-47); Hemoglobin 13.5 g/dL (12.0-15.0); Lymphocyte # 3.36 X10^3/ul (4.0); Lymphocyte % 23.5 % (19-41); Mean Corp Hgb Conc 31.5 g/dL (32-36); Mean Corpuscular Hgb 27.1 pg (27.0-32.0); Mean Platelet Vol. 11.7 fl (6.2-12.0); Monocyte# 0.63 X10^3/uL; Monocyte% 4.4 % (0-10); NRBC Flagged by Analyzer 0 % (0-5); Neutrophil # 9.76 X10^3/uL (2.7-7.7); Neutrophil % 68.2 % (47-70); Platelet Count 279 K/mm3 (150-450); RBC Distribution Width CV 13.2 % (11.6-14.6); RBC Distribution Width SD 40.6 fl (35.1-43.9); Red Blood Count 4.99 M/mm3 (4.2-5.4); White Blood Count 14.3 K/mm3 (4.4-11.0)
[2021-01-16 17:43] LABS: AST(SGOT) 13 U/L (15-37); Alanine Aminotransfer ALT/SGPT 23 U/L (13-56); Albumin, Serum 3.9 g/dL (3.2-5.0); Alkaline Phosphatase 118 U/L (45-117); Anion Gap 5 (5-15); BUN 11 mg/dL (7-18); BUN/Creat Ratio 16.2 RATIO (10-20); Bilirubin, Direct 0.07 mg/dL (0.00-0.30); Calcium,Total 9.1 mg/dL (8.5-10.1); Chloride 110 mmol/L (98-107); Creatinine, Serum 0.68 mg/dL (0.55-1.02); EST Glomerular Filtration Rate 114 mL/min (>60); Est Glom Filt Rate - Afr Amer 138 mL/min (>60); Globulin 3.9 g/dL (2.2-4.2); Glucose 84 mg/dL (74-106); Potassium 3.6 mmol/L (3.5-5.1); Protein, Total 7.8 g/dL (6.4-8.2); Sodium Level 140 mmol/L (136-145)
[2021-01-19 09:34] LABS: HIV - WCH Non-Reactive (Nonreactive); Hepatitis B Surface Antibody Reactive; Hepatitis B Surface Antigen Non-Reactive (Nonreactive)
[2021-01-19 09:37] LABS: Hepatitis C Antibody REACTIVE (Nonreactive)
== END ==
PROVIDERS: PCP Internal Medicine; Visit Provider Physician Assistant
DX: L40.0 Psoriasis vulgaris (principal); L73.2 Hidradenitis suppurativa
CPT/HCPCS: 36415; 80048; 80076; 85025; 86480; 86703; 86704; 86706; 86803; 87340

== ENCOUNTER → 2021-04-28 16:19 | Outpatient (CLI) | payer MEDICAID, SELFPAY ==
[2021-04-15 16:10] VITALS: BMI 47.5
--- NOTE | 2021-04-28 16:19 | MRI_ITS ---
STUDY: MRI BRAIN WITHOUT CONTRAST REASON FOR EXAM: Female, 25 years old. Migraine TECHNIQUE: Standardized multiplanar fat and water weighted pulse sequences were obtained. COMPARISON: None. FINDINGS: Brain parenchyma is intact without focal lesions, mass effect, extra parenchymal fluid collections, hydrocephalus or herniation. Major vascular flow structures are intact. Craniocervical junction is unremarkable. MRI/Brain without Contrast IMPRESSION: 1. Unremarkable brain MRI. Electronically Signed: Darin Saeed MD at 18:22 EDT Tel , Service support ,
--- NOTE | 2021-04-28 17:55 | RAD.NOTE ---
Unable to get IV acces for exam . Attempted by 3 technologists. non contrast exam sent for dictation.
== END ==
PROVIDERS: PCP Nurse Practitioner Family; Referring Provider Nurse Practitioner Family; Visit Provider Nurse Practitioner Family
DX: G43.909 Migraine, unspecified, not intractable, without status migrainosus (principal)
CPT/HCPCS: 70551

== ENCOUNTER 2021-11-27 15:39 | Outpatient (CLI) | payer MEDICAID, SELFPAY ==
[2021-11-27 16:35] LABS: Absolute Lymphocyte Count 4.11 X10^3/uL (0.83-4.51); Absolute Neutrophil Count 9.8 X10^3/uL (2.0-7.7); Basophil# 0.12 X10^3/uL; Basophil% 0.8 % (0-1); Eosinophil# 0.53 X10^3/uL; Eosinophils% 3.4 % (0-5); Hemoglobin 14.3 g/dL (12.0-15.0); Lymphocyte # 4.11 X10^3/ul (0.83-4.51); Lymphocyte % 26.7 % (19-41); Mean Corp Hgb Conc 32.5 g/dL (32-36); Mean Corpuscular Hgb 27.4 pg (27.0-32.0); Mean Corpuscular Volume 84.3 fL (81-99); Mean Platelet Vol. 11.1 fl (6.2-12.0); Monocyte# 0.73 X10^3/uL; Monocyte% 4.7 % (0-10); NRBC Flagged by Analyzer 0 % (0-5); Neutrophil % 63.6 % (47-70); Platelet Count 294 K/mm3 (150-450); RBC Distribution Width CV 12.8 % (11.6-14.6); RBC Distribution Width SD 39.4 fl (35.1-43.9); Red Blood Count 5.22 M/mm3 (4.2-5.4); White Blood Count 15.4 K/mm3 (4.4-11.0)
== END 2021-11-27 23:59 | disposition short-term general hospital (02) ==
LOC: BIMLAB 15:40
PROVIDERS: PCP Nurse Practitioner Family; Referring Provider Nurse Practitioner Family; Visit Provider Nurse Practitioner Family
DX: F31.9 Bipolar disorder, unspecified (principal)
CPT/HCPCS: 36415; 85025

== ENCOUNTER 2021-12-04 20:00 | Outpatient (CLI) | payer MEDICAID, SELFPAY | END 2021-12-04 23:59 | disposition short-term general hospital (02) | PROVIDERS: PCP Nurse Practitioner Family; Visit Provider Nurse Practitioner Family | DX: G47.10 Hypersomnia, unspecified (principal) | CPT/HCPCS: 95810 ==

== ENCOUNTER 2021-12-30 09:25 | Outpatient (CLI) | payer MEDICAID, SELFPAY ==
[2021-12-30 12:34] LABS: Absolute Lymphocyte Count 3.58 X10^3/uL (0.83-4.51); Absolute Neutrophil Count 7.8 X10^3/uL (2.0-7.7); Basophil# 0.08 X10^3/uL; Basophil% 0.6 % (0-1); Eosinophil# 0.57 X10^3/uL; Eosinophils% 4.5 % (0-5); Hematocrit 41.3 % (37-47); Hemoglobin 13.5 g/dL (12.0-15.0); Lymphocyte # 3.58 X10^3/ul (0.83-4.51); Lymphocyte % 28.4 % (19-41); Mean Corp Hgb Conc 32.7 g/dL (32-36); Mean Corpuscular Hgb 28.2 pg (27.0-32.0); Mean Corpuscular Volume 86.4 fL (81-99); Mean Platelet Vol. 11.4 fl (6.2-12.0); Monocyte# 0.48 X10^3/uL; Monocyte% 3.8 % (0-10); NRBC Flagged by Analyzer 0 % (0-5); Neutrophil # 7.83 X10^3/uL (2.7-7.7); Neutrophil % 62.1 % (47-70); Platelet Count 264 K/mm3 (150-450); RBC Distribution Width CV 13.5 % (11.6-14.6); RBC Distribution Width SD 42.2 fl (35.1-43.9); Red Blood Count 4.78 M/mm3 (4.2-5.4); White Blood Count 12.6 K/mm3 (4.4-11.0)
[2021-12-30 12:57] LABS: ALB/GLOB Ratio 0.8 RATIO (0.9-2.4); AST(SGOT) 16 U/L (15-37); Alanine Aminotransfer ALT/SGPT 28 U/L (13-56); Albumin, Serum 3.3 g/dL (3.2-5.0); Alkaline Phosphatase 95 U/L (45-117); Anion Gap 8 (5-15); BUN 15 mg/dL (7-18); BUN/Creat Ratio 19.9 RATIO (10-20); Calcium,Total 8.5 mg/dL (8.5-10.1); Chloride 109 mmol/L (98-107); Cholesterol 190 mg/dL (200); Creatinine, Serum 0.75 mg/dL (0.55-1.02); EST Glomerular Filtration Rate 101 mL/min (>60); Est Glom Filt Rate - Afr Amer 122 mL/min (>60); Glucose 124 mg/dL (74-106); High Density Lipoprotein 36 mg/dL; Potassium 3.8 mmol/L (3.5-5.1); Protein, Total 7.3 g/dL (6.4-8.2); Sodium Level 139 mmol/L (136-145); Thyroid Stim Hormone (TSH) 2.81 uIU/mL (0.358-3.74); Triglycerides 283 mg/dL; Very Low Density Lipoprotein 57 mg/dL (5-40)
== END 2021-12-30 23:59 | disposition home or self-care (01) ==
LOC: BIMLAB 09:26
PROVIDERS: PCP Nurse Practitioner Family; Referring Provider Nurse Practitioner Family; Visit Provider Nurse Practitioner Family
DX: F31.9 Bipolar disorder, unspecified (principal); F41.8 Other specified anxiety disorders; G47.10 Hypersomnia, unspecified
CPT/HCPCS: 36415; 80053; 80061; 84443; 85025

== ENCOUNTER → 2022-03-17 | Outpatient (CLI) | payer MEDICAID, SELFPAY ==
--- NOTE | 2022-03-17 08:43 | RAD_ITS ---
STUDY: X-RAY - LUMBAR SPINE REASON FOR EXAM: Female, 26 years old. Chronic low back pain TECHNIQUE: 3 view(s) of the lumbar spine were obtained. COMPARISON: None FINDINGS: Normal lumbar lordosis. There is no substantial scoliosis. There is a normal alignment of the vertebrae. Normal vertebral bodies and endplates. Mild degree of disc space narrowing at the L5-S1 level. The soft tissue structures are unremarkable. RAD/Lumbar Spine 2 or 3 Views IMPRESSION: Mild degree of disc space narrowing at the L5-S1 level. Electronically Signed: Erik Willard MD at 9:20 EDT ,
== END | disposition home or self-care (01) ==
LOC: RAD 08:26
PROVIDERS: PCP Nurse Practitioner Family; Referring Provider Nurse Practitioner Family; Visit Provider Nurse Practitioner Family
DX: M54.50 Low back pain, unspecified (principal); G89.29 Other chronic pain
CPT/HCPCS: 72100

== ENCOUNTER → 2022-03-18 | Outpatient (CLI) | payer MEDICAID, SELFPAY ==
[2022-03-18 12:27] LABS: Absolute Lymphocyte Count 4.08 X10^3/uL (0.83-4.51); Absolute Neutrophil Count 8.7 X10^3/uL (2.0-7.7); Basophil# 0.07 X10^3/uL; Basophil% 0.5 % (0-1); Eosinophil# 0.53 X10^3/uL; Eosinophils% 3.7 % (0-5); Hematocrit 42.6 % (37-47); Hemoglobin 13.7 g/dL (12.0-15.0); Lymphocyte # 4.08 X10^3/ul (0.83-4.51); Lymphocyte % 28.7 % (19-41); Mean Corp Hgb Conc 32.2 g/dL (32-36); Mean Corpuscular Hgb 27.6 pg (27.0-32.0); Mean Corpuscular Volume 85.7 fL (81-99); Mean Platelet Vol. 11.6 fl (6.2-12.0); Monocyte# 0.76 X10^3/uL; Monocyte% 5.4 % (0-10); NRBC Flagged by Analyzer 0 % (0-5); Neutrophil % 61.3 % (47-70); POSITIVE MORPHOLOGY YES; Platelet Count 305 K/mm3 (150-450); RBC Distribution Width CV 13.1 % (11.6-14.6); RBC Distribution Width SD 40.7 fl (35.1-43.9); Red Blood Count 4.97 M/mm3 (4.2-5.4); White Blood Count 14.2 K/mm3 (4.4-11.0)
[2022-03-18 12:31] LABS: Differential Indicated SCAN CRITERIA MET
[2022-03-18 13:07] LABS: Differential Comment SCANNED; Reactive Lymphocyte 1+
== END | disposition home or self-care (01) ==
LOC: BIMLAB 10:39
PROVIDERS: PCP Nurse Practitioner Family; Referring Provider Nurse Practitioner Family; Visit Provider Nurse Practitioner Family
DX: F31.9 Bipolar disorder, unspecified (principal)
CPT/HCPCS: 36415; 85025

== ENCOUNTER → 2022-04-08 | Outpatient (CLI) | payer MEDICAID, SELFPAY ==
--- NOTE | 2022-04-08 10:36 | PFTCOMP ---
COMPLETE PULMONARY FUNCTION TEST INTERPRETATION Brief HPI: Patient is a 26-year-old female, currently under the care of Monique Kapadia, who presents to [facility] for complete pulmonary function tests secondary to diagnosis of tobacco abuse. Respiratory therapist reports good effort and reproducible results. Interpretation: Forced expiration spirometry shows no large airways obstructive ventilatory defect with an FEV1 of 89% predicted. There is no significant bronchodilator response by strict ATS criteria. Spirograms are of poor quality and show exhalation for only 1 second before bronchodilators, likely underestimating FVC. The respiratory flow volume loop shows a normal pattern. Lung volumes by body plethysmography show a normal total lung capacity at 4.6 L, 92% predicted. All other lung volumes are within normal limits. Diffusion capacity by carbon monoxide is decreased at 62% predicted. The airway resistance is normal. No previous pulmonary function tests were available for review. Impression: Isolated reduction diffusion capacity with preserved lung volumes and spirometry.
== END | disposition home or self-care (01) ==
LOC: PSN 08:44
PROVIDERS: PCP Nurse Practitioner Family; Visit Provider Nurse Practitioner Acute Care
DX: Z72.0 Tobacco use (principal)
CPT/HCPCS: 94060; 94726; 94729

== ENCOUNTER → 2022-04-09 | Outpatient (CLI) | payer MEDICAID, SELFPAY ==
[2022-04-09] MEDS: Zolpidem Tartrate 5 MG Tablet PO (21:06)
== END | disposition home or self-care (01) ==
LOC: SL 21:33
PROVIDERS: PCP Nurse Practitioner Family; Visit Provider Nurse Practitioner Acute Care
DX: G47.10 Hypersomnia, unspecified (principal)
CPT/HCPCS: 95811

== ENCOUNTER 2022-04-12 19:51 | Emergency (ER) | payer MEDICAID, SELFPAY ==
[2022-04-12 19:52] VITALS: BP 121/80; PULSE 98; RESP 16; TEMP 37.3; O2SAT 97; BMI 51.0
--- NOTE | 2022-04-12 20:07 | EX.ED.DYSGE1 ---
HPI History of Present Illness Chief Complaint: Nausea/Vomiting/Diarrhea Narrative Narrative: Patient presents with nausea vomiting for 3 days. She has no abdominal pain she has no urinary symptoms, she has an implant and denies . No fevers or chills. No known sick contacts. No recent travel history. She has loose stools also for the past 3 days. [facility] Medical History Bipolar disorder Chronic low back pain Depression with anxiety Hepatitis History of substance abuse Hypersomnia Migraine Plaque psoriasis Home Medications etonogestrel 68 mg subdermal implant 1 implant SUBDERMAL ONCE 09/11/19 [History Last Taken Unknown] rizatriptan 10 mg tablet See Rx Instructions PO .COMPLEX #14 tab 04/15/21 [Rx Last Taken Unknown] amitriptyline 50 mg tablet 50 mg PO QHS #90 tab 12/31/21 [Rx Last Taken Unknown] naproxen 500 mg tablet 500 mg PO BID PRN #20 tab 02/11/22 [Rx Last Taken Unknown] quetiapine 50 mg tablet 50 mg PO BID #60 tab 02/11/22 [Rx Last Taken Unknown] albuterol sulfate 90 mcg/actuation aerosol inhaler 2 puff INHALATION Q4H PRN #18 g 02/15/22 [Rx Last Taken Unknown] sertraline 50 mg tablet 50 mg PO DAILY tab 02/15/22 [History Last Taken Unknown] cyclobenzaprine 10 mg tablet 5 - 10 mg PO TID PRN #30 tab 03/18/22 [Rx Last Taken Unknown] ondansetron 4 mg PO Q8H #14 tab 04/12/22 [Rx Last Taken Unknown] Allergy/AdvReac Type Severity Reaction Status Date / Time No Known Allergies Allergy Verified 04/12/22 19:52 Family History Other Depression Diabetes Hypertension Social History Smoking Status: Current every day smoker tobacco type: cigarettes Electronic Cigarette Use: not used second hand exposure: Yes alcohol intake: current alcohol intake frequency: holidays/special occasions only substance use type: former substance user Date of last use: 1 year ago, heroin and methamphetamine caffeine: No what type of physical activity do you participate in: none seatbelt use: sometimes do you feel safe at home: Yes additional social history: Boyfriend-Manuel Patient works at [employer] ROS ROS ED ROS Narrative Past medical history: Reviewed Medications: Reviewed Social history: Noncontributory Review of systems: All systems negative except as indicated General: No fever Eyes: No visual changes ENT: No upper airway congestion, normal voice Neck: No neck pain Cardiovascular: No chest pain Respiratory: No shortness of breath or cough Gastrointestinal: No abdominal pain. She has nausea and vomiting as in HPI Genitourinary: No dysuria Musculoskeletal: Denies myalgias no difficulty with ambulation Skin: No rash Neurological: No memory loss, confusion or any focal weakness Psych: No recent behavioral changes Hematologic: No easy bleeding or easy bruising EXAM Physical Exam Narrative Exam Narrative: Physical exam General: Well nourished, Well developed, No Acute Distress Head: Normocephalic, Atraumatic Eyes: Conjunctiva not pale ENT: Slightly dry mucous membranes Neck: Supple, Nontender, No lymphadenopathy Cardiovascular: Regular rate, Regular rhythm Respiratory: No distress, CTA bilaterally Abdomen: Soft, Nontender, Nondistended Back: Nontender, Normal Inspection. Negative for: CVA tenderness Extremities: Nontender, No edema Skin: Normal color, No rash Neurological: Alert, Normal Strength, Normal Sensation Psychological: Normal affect Const Vital Signs: 04/12/22 19:52 Temperature 99.1 F Temperature Source Temporal Pulse Rate 98 Respiratory Rate 16 Blood Pressure 121/80 H Blood Pressure Mean 93 Pulse Ox 97 Oxygen Delivery Method Room Air MDM MDM MDM Narrative Medical decision making narrative: Patient's work-up is unremarkable she did improve after IV fluids and antiemetics. I will discharge her in stable condition. This is likely a self-limiting viral gastroenteritis Lab Data Labs: Laboratory Results - last 24 hr 04/12/22 04/12/22 20:30 20:30 WBC 14.4 H RBC 4.78 Hgb 13.3 Hct 40.1 MCV 83.9 MCH 27.8 MCHC 33.2 RDW Std Deviation 41.0 RDW Coeff of Sathya 13.3 Plt Count 294 MPV 11.0 Immature Gran % (Auto) 0.500 Neut % (Auto) 64.3 Lymph % (Auto) 27.8 [place] % (Auto) 3.5 Eos % (Auto) 3.3 Baso % (Auto) 0.6 Absolute Neuts (auto) 9.3 H Absolute Lymphs (auto) 4.00 Nucleated RBC % 0 Sodium 141 Potassium 3.7 Chloride 109 H Carbon Dioxide 26.0 Anion Gap 6 BUN 14 Creatinine 0.80 Estim Creat Clear Calc 89.70 Est GFR (MDRD) Af Amer 113 Est GFR (MDRD) Non-Af 94 BUN/Creatinine Ratio 17.5 Glucose 113 H Calcium 9.1 Total Bilirubin 0.20 AST 15 ALT 25 Alkaline Phosphatase 87 Total Protein 7.9 Albumin 3.6 Globulin 4.3 H Albumin/Globulin Ratio 0.8 L Lipase 127 Discharge Plan Triage Chief Complaint: Nausea/Vomiting/Diarrhea ED Provider: Ricardo Matos Dx/Rx/DC Orders Clinical Impression: Nausea & vomiting, Acute dehydration Instructions: ED Diet for Vomiting or ..., ED Vomiting (Adult) Prescriptions: New ondansetron 4 mg tablet,disintegrating 4 mg PO Q8H Qty: 14 RF: 0 No Action Nexplanon 68 mg implant 1 implant subdermal ONCE RF: 0 rizatriptan [Maxalt] 10 mg tablet See Rx Instructions PO .COMPLEX Qty: 14 RF: 0 sertraline 50 mg tablet 50 mg PO DAILY RF: 0 albuterol sulfate [Ventolin HFA] 90 mcg/actuation HFA aerosol inhaler 2 puff inhalation Q4H PRN (Reason: shortness of breath or wheezing) Qty: 18 RF: 6 cyclobenzaprine 10 mg tablet 5 - 10 mg PO TID PRN (Reason: muscle spasm) Qty: 30 RF: 0 amitriptyline 50 mg tablet 50 mg PO QHS Qty: 90 RF: 1 naproxen 500 mg tablet 500 mg PO BID PRN (Reason: pain) Qty: 20 RF: 1 quetiapine 50 mg tablet 50 mg PO BID Qty: 60 RF: 1 Primary Care Provider: Laci Eldridge NP Referrals: Laci Eldridge ASSISTANT PROFESSOR OF NURSING, ASSISTANT PROFESSOR OF NURSING-C [Primary Care Provider] - 2 Days Disposition Disposition: Home, Self Care
[2022-04-12] MEDS: 0.9% Normal Saline 1,000 ML 1000 ML IV (20:28)
[2022-04-12] MEDS: Ondansetron 4 MG/2 ML Vial IV (20:28)
[2022-04-12 20:46] LABS: Absolute Neutrophil Count 9.3 X10^3/uL (2.0-7.7); Basophil# 0.08 X10^3/uL; Basophil% 0.6 % (0-1); Eosinophil# 0.48 X10^3/uL; Eosinophils% 3.3 % (0-5); Hematocrit 40.1 % (37-47); Hemoglobin 13.3 g/dL (12.0-15.0); Lymphocyte % 27.8 % (19-41); Mean Corp Hgb Conc 33.2 g/dL (32-36); Mean Corpuscular Hgb 27.8 pg (27.0-32.0); Mean Corpuscular Volume 83.9 fL (81-99); Monocyte# 0.51 X10^3/uL; Monocyte% 3.5 % (0-10); NRBC Flagged by Analyzer 0 % (0-5); Neutrophil # 9.26 X10^3/uL (2.7-7.7); Neutrophil % 64.3 % (47-70); Platelet Count 294 K/mm3 (150-450); RBC Distribution Width CV 13.3 % (11.6-14.6); Red Blood Count 4.78 M/mm3 (4.2-5.4); White Blood Count 14.4 K/mm3 (4.4-11.0)
[2022-04-12 20:56] LABS: ALB/GLOB Ratio 0.8 RATIO (0.9-2.4); AST(SGOT) 15 U/L (15-37); Alanine Aminotransfer ALT/SGPT 25 U/L (13-56); Albumin, Serum 3.6 g/dL (3.2-5.0); Alkaline Phosphatase 87 U/L (45-117); Anion Gap 6 (5-15); BUN 14 mg/dL (7-18); BUN/Creat Ratio 17.5 RATIO (10-20); Calcium,Total 9.1 mg/dL (8.5-10.1); Chloride 109 mmol/L (98-107); EST Glomerular Filtration Rate 94 mL/min (>60); Est Glom Filt Rate - Afr Amer 113 mL/min (>60); Globulin 4.3 g/dL (2.2-4.2); Glucose 113 mg/dL (74-106); Lipase 127 U/L (73-393); Potassium 3.7 mmol/L (3.5-5.1); Protein, Total 7.9 g/dL (6.4-8.2); Sodium Level 141 mmol/L (136-145)
[2022-04-12] MEDS: DiphenhydrAMINE 50 MG/ML Syringe 25 MG IV (21:23)
[2022-04-12] MEDS: Metoclopramide 10 MG/2 ML Vial 5 MG IV (21:23)
[2022-04-12 21:25] VITALS: PULSE 74; RESP 17; TEMP 36.6; O2SAT 97
== END 2022-04-12 21:28 | disposition home or self-care (01) ==
PROVIDERS: Emergency Provider Emergency Medicine; PCP Nurse Practitioner Family; Visit Provider Emergency Medicine
DX: R11.2 Nausea with vomiting, unspecified (principal); E86.0 Dehydration; R19.7 Diarrhea, unspecified; F17.210 Nicotine dependence, cigarettes, uncomplicated
CPT/HCPCS: 80053; 83690; 85025; 96374; 96375; 99283; J7030; A4216; J2405

== ENCOUNTER 2022-07-13 22:34 | Emergency (ER) | payer MEDICAID, SELFPAY ==
[2022-07-13 22:35] VITALS: BP 122/76; PULSE 74; RESP 15; TEMP 37.1; O2SAT 98; BMI 46.0
[2022-07-14] MEDS: Ketorolac 30 MG/ML Syringe IV (00:31)
[2022-07-14] MEDS: Metoclopramide 10 MG/2 ML Vial IV (00:31)
[2022-07-14] MEDS: DiphenhydrAMINE 50 MG/ML Syringe IV (00:38)
[2022-07-14] MEDS: 0.9% Normal Saline 1,000 ML 999 ML IV (00:39)
--- NOTE | 2022-07-14 01:21 | EX.ED.DYSGE1 ---
HPI History of Present Illness Chief Complaint: Headache Narrative Narrative: Patient is a 26-year-old female with past medical history of migraine headache as well as bipolar disorder and hepatitis C. she states she has had an MRI in the past which showed no structural abnormalities and that she takes a medication to abort migraines. She reports she will get headaches most days of the week but can take her medication and use Tylenol and Motrin and have improvement. Patient states about 5 days ago she felt a headache coming on gradually and so she took her normal medication but despite this the headache has persisted. She reports that the headache is similar in severity and sensitive to light and sound like her previous headaches but that this 1 has just persisted which is abnormal. Otherwise she denies any fevers or chills or trauma prior to the headache beginning [facility] Medical History Bipolar disorder Chronic low back pain Depression with anxiety Hepatitis History of substance abuse Hypersomnia Migraine Plaque psoriasis Home Medications etonogestrel 68 mg subdermal implant (Nexplanon) 1 implant subdermal ONCE 09/11/19 [History Last Taken Unknown] amitriptyline 50 mg tablet 50 mg PO QHS #90 tabs 12/31/21 [Rx Last Taken Unknown] naproxen 500 mg tablet 500 mg PO BID PRN pain #20 tabs 02/11/22 [Rx Last Taken Unknown] quetiapine 50 mg tablet 50 mg PO BID #60 tabs 02/11/22 [Rx Last Taken Unknown] albuterol sulfate 90 mcg/actuation aerosol inhaler (Ventolin HFA) 2 puff inhalation Q4H PRN shortness of breath or wheezing #18 grams 02/15/22 [Rx Last Taken Unknown] sertraline 50 mg tablet 50 mg PO DAILY 02/15/22 [History Last Taken Unknown] ondansetron 4 mg disintegrating tablet 4 mg PO Q8H #14 tabs 04/12/22 [Rx Last Taken Unknown] rizatriptan 10 mg tablet (Maxalt) See Rx Instructions PO .COMPLEX #14 tabs 04/29/22 [Rx Last Taken Unknown] ubrogepant 100 mg tablet (Ubrelvy) 100 mg PO QDAY #48 tabs 04/29/22 [Rx Last Taken Unknown] cyclobenzaprine 10 mg tablet 5 - 10 mg PO TID PRN muscle spasm #30 tabs 05/18/22 [Rx Last Taken Unknown] varenicline 0.5 mg (11)-1 mg (42) tablets in a dose pack (Chantix Starting Month Box) See Rx Instructions PO PER PKG DIR #53 tabs 05/18/22 [Rx Last Taken Unknown] Allergy/AdvReac Type Severity Reaction Status Date / Time No Known Allergies Allergy Verified 07/13/22 22:35 Family History Other Depression Diabetes Hypertension Social History Smoking Status: Current every day smoker tobacco type: cigarettes Electronic Cigarette Use: not used second hand exposure: Yes alcohol intake: current alcohol intake frequency: holidays/special occasions only substance use type: former substance user Date of last use: 1 year ago, heroin and methamphetamine caffeine: No what type of physical activity do you participate in: none seatbelt use: sometimes do you feel safe at home: Yes additional social history: Boyfriend-Manuel Patient works at [employer] ED Constitutional Constitutional ED: Denies chills or fever(s) Eyes Eyes: Reports other Details: Positive photophobia ENT ENT ED: Denies sore throat Cardiovascular Cardiovascular: Denies chest pain Respiratory/Chest Respiratory/Chest: Denies cough or dyspnea Gastrointestinal Gastrointestinal: Denies abdominal pain, diarrhea, nausea or vomiting Genitourinary Genitourinary ED: Denies dysuria Musculoskeletal Musculoskeletal: Denies myalgias Integumentary Denies rash Neurologic Neurologic: Reports headache(s) Hematologic/Lymphatic Hematologic/Lymphatic: Denies easy bleeding or easy bruising EXAM Physical Exam Const Vital Signs: 07/13/22 22:35 Temperature 98.7 F Temperature Source Temporal Pulse Rate 74 Respiratory Rate 15 Blood Pressure 122/76 H Blood Pressure Mean 91 Pulse Ox 98 Oxygen Delivery Method Room Air Positive well nourished, well developed and obese General Appearance ED: well developed Nutritional Appearance: obese Eyes PERRL and EOMs intact bilaterally Neck supple Neck Narrative: No meningeal signs Resp normal respiratory effort and clear to auscultation bilaterally Cardio regular rate and regular rhythm Extremity normal to inspection Neuro oriented x3, CN's II-XII intact bilaterally and no sensory deficits noted Neuro Narrative: Cranial nerves II through XII are grossly intact there are no focal neurologic deficits. No pronator drift no dysmetria no truncal ataxia. NIH stroke scale score of 0. Sensorium / Orientation: alert Psych mental status grossly normal Skin no rashes or lesions noted MDM MDM MDM Narrative Medical decision making narrative: Patient presented to the ER with stable vitals and normal neurologic exam. She had no report or signs of trauma and no physical exam findings concerning for infectious process. Therefore I felt no need for imaging or laboratory studies. Patient was given IV fluids Toradol Benadryl and Reglan. On reevaluation she reports resolution of her headache and her neuro exam remains normal. Therefore patient is safe for discharge and can follow-up with her family doctor on an outpatient basis Discharge Plan Triage Chief Complaint: Headache ED Provider: Dusty Hartmann Dx/Rx/DC Orders Clinical Impression: Cephalgia, Bipolar disorder Instructions: ED, Migraine (Classical) Prescriptions: No Action Nexplanon 68 mg implant 1 implant subdermal ONCE sertraline 50 mg tablet 50 mg PO DAILY albuterol sulfate [Ventolin HFA] 90 mcg/actuation HFA aerosol inhaler 2 puff inhalation Q4H PRN (Reason: shortness of breath or wheezing) Qty: 18 6RF rizatriptan [Maxalt] 10 mg tablet See Rx Instructions PO .COMPLEX Qty: 14 0RF Rx Instructions: take 1 tab at onset of headache; if no relief may repeat 1 tab after at least 2 hrs; max = 3 tabs/24 hr PO Ubrelvy 100 mg tablet 100 mg PO QDAY Qty: 48 3RF Rx Instructions: as a single dose; may repeat once in >=2 hours after first dose if needed ondansetron 4 mg tablet,disintegrating 4 mg PO Q8H Qty: 14 0RF amitriptyline 50 mg tablet 50 mg PO QHS Qty: 90 1RF naproxen 500 mg tablet 500 mg PO BID PRN (Reason: pain) Qty: 20 1RF quetiapine 50 mg tablet 50 mg PO BID Qty: 60 1RF cyclobenzaprine 10 mg tablet 5 - 10 mg PO TID PRN (Reason: muscle spasm) Qty: 30 0RF Chantix Starting Month Box 0.5 mg (11)- 1 mg (42) tablets,dose pack See Rx Instructions PO PER PKG DIR Qty: 53 0RF Rx Instructions: PO PER PKG DIR Primary Care Provider: Laci Eldridge NP Referrals: Laci Eldridge [employer], [employer] [Primary Care Provider] - Disposition Disposition: Home, Self Care Discharge Date/Time: 07/14/22 01:33
== END 2022-07-14 01:33 | disposition home or self-care (01) ==
PROVIDERS: Emergency Provider Emergency Medicine; PCP Nurse Practitioner Family; Visit Provider Emergency Medicine
DX: R51.9 Headache, unspecified (principal); F31.9 Bipolar disorder, unspecified; F17.210 Nicotine dependence, cigarettes, uncomplicated; E66.9 Obesity, unspecified
CPT/HCPCS: 96374; 96375; 99282; A4216